=== PATIENT | female | born 1985 | race Caucasian/White ===

== ENCOUNTER → 2020-02-01 17:33 | Outpatient (CLI) | payer OTHER, SELFPAY ==
--- NOTE | ~2020-02-01 | MM_ITS ---
EXAMINATION: MM screening marylin BI w seda HISTORY: Screening mammogram TECHNIQUE: Craniocaudal and mediolateral oblique 3-D tomosynthesis images were obtained and synthetic 2-D images were generated. CAD analysis was submitted and interpreted. COMPARISON: No prior mammogram is available for comparison at this institution. BREAST PARENCHYMAL COMPOSITION: The breasts are heterogeneously dense, which may obscure small masses . FINDINGS: There is no evidence of suspicious mass, calcification, or architectural distortion to sugg est malignancy in either breast. There has been no suspicious interval change. IMPRESSION: 1. No mammographic evidence of malignancy. 2. Recommend routine screening mammography in one year. BI-RADS Category 1: Negative Reviewed, dictated and finalized at location A.
== END ==
PROVIDERS: Visit Provider Registered Nurse
DX: Z12.31 Encounter for screening mammogram for malignant neoplasm of breast (principal)
CPT/HCPCS: 77063; 77067

== ENCOUNTER → 2020-10-17 07:57 | Outpatient (CLI) | payer BC, OTHER, SELFPAY ==
--- NOTE | ~2020-10-17 | MMUS_ITS ---
EXAMINATION: MM diagnostic marylin LT w seda, US breast LT complete HISTORY: Diffuse, noncyclical left breast pain, history of breast cancer her mother at age 40 TECHNIQUE: Craniocaudal, mediolateral, and mediolateral oblique 3-D tomosynthesis images of the left breast were performed and synthetic 2-D images were generated. CAD analysis was submitted and interpr eted. High resolution complete left breast ultrasound was performed including all four quadrants in t he subareolar region. COMPARISON: 02/01/2020 BREAST PARENCHYMAL COMPOSITION: The breasts are heterogeneously dense, which may obscure small masses . FINDINGS: MAMMOGRAPHIC FINDINGS: There is no evidence of suspicious mass, calcification, or architectural distortion to suggest malig jenaro. There has been no suspicious interval change. No mammographic correlate is identified for the patient's reported left breast pain. ULTRASOUND: No suspicious cystic or solid mass is identified in the left breast. IMPRESSION: 1. No specific mammographic or sonographic correlate is identified for the reported diffuse left kylie st pain. Further evaluation at this time should be based on clinical assessment. Continued follow-up physical examination is recommended. 2. Routine screening mammography is recommended. BI-RADS Category 1: Negative Reviewed, dictated and finalized at location A. [employer] IMPRESSION: 1. No specific mammographic or sonographic correlate is identified for the repo rted diffuse left breast pain. Further evaluation at this time should be based on clinical assessment. Continued follow-up physical examination is recommended . 2. Routine screening mammography is recommended. BI-RADS Category 1: Negative
== END ==
PROVIDERS: PCP Student in an Organized Health Care Education/Training Program; Visit Provider Student in an Organized Health Care Education/Training Program
DX: N63.20 Unspecified lump in the left breast, unspecified quadrant (principal); N64.4 Mastodynia
CPT/HCPCS: 76641; 77061; 77065; G0279

== ENCOUNTER → 2021-02-23 08:21 | Outpatient (CLI) | payer BC, SELFPAY ==
--- NOTE | ~2021-02-23 | US_ITS ---
US thyroid INDICATION: Acquired hypothyroidism TECHNIQUE: Real-time sonographic images of the thyroid gland were obtained. COMPARISON: No prior studies for comparison. FINDINGS: The right thyroid lobe measures 3.1 x 1.1 x 0.8 cm. The left thyroid lobe measures 2.8 x 0 .9 x 0.9 cm. There is heterogeneous echotexture and echogenicity throughout the thyroid gland. No dis crete nodules identified. Normal vascular flow is present. IMPRESSION: 1. Atrophic thyroid without discrete nodule or abnormal vascularity. Reviewed, dictated and finalized at location B.
== END ==
PROVIDERS: PCP Student in an Organized Health Care Education/Training Program; Visit Provider Student in an Organized Health Care Education/Training Program
DX: E03.9 Hypothyroidism, unspecified (principal)
CPT/HCPCS: 76536